=== PATIENT | female | born 1975 | race Two or more races ===

== ENCOUNTER 2017-07-05 12:15 | Emergency (ER) | payer OTHER ==
[~2017-07-05] VITALS: Ht 165.1 cm; Wt 53.5 kg
== END 2017-07-05 19:18 | disposition home or self-care (01) ==
LOC: ER 12:15
DX: S13.4XXA Sprain of ligaments of cervical spine, initial encounter (principal); V49.9XXA Car occupant (driver) (passenger) injured in unspecified traffic accident, initial encounter; Y93.89 Activity, other specified; Y92.488 Other paved roadways as the place of occurrence of the external cause; Y99.8 Other external cause status

== ENCOUNTER 2017-09-20 15:28 | Outpatient (CLI) | payer OTHER | END 2017-09-20 16:37 | disposition home or self-care (01) | LOC: RAD 501 15:28 | DX: M25.561 Pain in right knee (principal); M25.562 Pain in left knee ==